=== PATIENT | female | born 1940 | race Two or more races ===

== ENCOUNTER 2019-01-31 06:15 | Day surgery (SDC) | payer OTHER | END 2019-01-31 10:40 | disposition home or self-care (01) | LOC: AMB-ENDOS 06:15 | DX: K64.8 Other hemorrhoids (principal) ==

== ENCOUNTER 2019-06-20 09:24 | Emergency (ER) | payer OTHER ==
[~2019-06-20] VITALS: Ht 157.5 cm; Wt 61.7 kg
[2019-06-20] MEDS ORDERED: ATACAND16 MG (09:49)
[2019-06-20] MEDS ORDERED: ARIMIDEX PO (09:49)
[2019-06-20] MEDS ORDERED: TOPROL XL50 M1 (09:50)
[2019-06-20] MEDS ORDERED: JANUMET 50-5001 EACH (09:51)
[2019-06-20] MEDS ORDERED: LIPITOR20 MG (09:52)
== END 2019-06-20 13:50 | disposition home or self-care (01) ==
LOC: ER 09:24
DX: I16.0 Hypertensive urgency (principal); I10 Essential (primary) hypertension; R42 Dizziness and giddiness

== ENCOUNTER 2019-07-14 12:52 | Emergency (ER) | payer OTHER ==
[~2019-07-14] VITALS: Ht 160 cm; Wt 59.0 kg
[~2019-07-14 12:52] MED LIST: ARIMIDEX PO; ATACAND16 MG; JANUMET 50-5001 EACH; LIPITOR20 MG; TOPROL XL50 M1
== END 2019-07-14 18:01 | disposition home or self-care (01) ==
LOC: ER 12:52
DX: R55 Syncope and collapse (principal)

== ENCOUNTER 2022-06-10 08:59 | Outpatient (CLI) | payer OTHER | END 2022-06-10 09:05 | disposition home or self-care (01) | LOC: TOM 08:59 | DX: Z12.11 Encounter for screening for malignant neoplasm of colon (principal); Z85.3 Personal history of malignant neoplasm of breast ==

== ENCOUNTER 2023-02-04 10:44 | Emergency (ER) | payer OTHER ==
[~2023-02-04] VITALS: Ht 157.5 cm; Wt 59.0 kg
== END 2023-02-04 18:22 | disposition home or self-care (01) ==
LOC: ER 10:44
DX: K52.89 Other specified noninfective gastroenteritis and colitis (principal); Z20.822 Contact with and (suspected) exposure to COVID-19